=== PATIENT | male | born 1990 | race Caucasian/White ===

== ENCOUNTER 2019-11-11 08:00 | Outpatient (CLI) | payer OTHER ==
[2019-11-11 11:51] LABS: BASOPHILS # (AUTO) 0.1 10^3/uL (0.0-0.1); BASOPHILS % (AUTO) 1.3 %; EOSINOPHILS # (AUTO) 0.2 10^3/uL (0.0-0.7); EOSINOPHILS % (AUTO) 2.1 %; HGB - HEMOGLOBIN 14.8 g/dL (14.0-18.0); LYMPHOCYTES # (AUTO) 2.1 10^3/uL (1.5-3.5); LYMPHOCYTES % (AUTO) 22.7 %; MEAN CORPUSCULAR HEMOGLOBIN 29.5 pg (27.0-31.0); MEAN CORPUSCULAR HGB CONC 32.4 g/dL (32.0-36.0); MEAN PLATELET VOLUME 9.3 fL (7.4-11.4); MONOCYTES # (AUTO) 0.7 10^3/uL (0.0-1.0); MONOCYTES % (AUTO) 7.8 %; NEUTROPHILS # (AUTO) 6.2 10^3/uL (1.5-6.6); NEUTROPHILS % (AUTO) 65.6 %; PLT - PLATELET COUNT 367 10^3/uL (130-450); RED BLOOD COUNT 5.02 10^6/uL (4.70-6.10); WHITE BLOOD COUNT 9.4 x10^3/uL (4.8-10.8)
[2019-11-11 13:03] LABS: ALBUMIN 5.1 g/dL (3.2-5.5); ALBUMIN/GLOBULIN RATIO 1.8 (1.0-2.2); BILIRUBIN,TOTAL 0.9 mg/dL (0.2-1.0); CALCIUM 9.5 mg/dL (8.5-10.3); CREATININE 0.9 mg/dL (0.6-1.2); TOTAL PROTEIN 7.9 g/dL (6.7-8.2)
== END 2019-11-11 23:59 | disposition home or self-care (01) ==
LOC: LAB.WCP 08:00
PROVIDERS: ATTEND Family Medicine
DX: F41.1 Generalized anxiety disorder (principal); K29.70 Gastritis, unspecified, without bleeding; F12.288 Cannabis dependence with other cannabis-induced disorder
CPT/HCPCS: 36415; 80053; 84443; 85025

== ENCOUNTER 2021-07-22 12:18 | Outpatient (CLI) | payer OTHER ==
--- NOTE | 2021-07-22 13:22 | XRAY Report ---
PROCEDURE: Hand 3 View RT INDICATIONS: HAND JOINT PAIN, RIGHT TECHNIQUE: 3 views of the hand(s) acquired. COMPARISON: None FINDINGS: Bones: No fractures or dislocations. No suspicious bony lesions. Soft tissues: No suspicious soft tissue calcifications. IMPRESSION: No visualized acute fracture or dislocation. However, occult injury cannot be excluded. Recommend sherry rt interval imaging follow-up in 7-10 days as clinically indicated for additional evaluation. Reviewed by: Rossi Arenas MD on 07/22/2021 1:20 PM PDT Approved by: Rossi Arenas MD on 07/22/2021 1:20 PM PDT Station ID: [id number]
== END 2021-07-22 23:59 | disposition home or self-care (01) ==
LOC: DI.N 12:18
PROVIDERS: ATTEND Family Medicine
DX: M79.641 Pain in right hand (principal)